=== PATIENT | female | born 2000 | race Caucasian/White ===

== ENCOUNTER 2020-09-19 21:41 | Emergency (ER) | payer OTHER, SELFPAY ==
[2020-09-19 21:45] VITALS: BP 138/62; PULSE 106; RESP 20; TEMP 36.8; O2SAT 98; BMI 42.0
--- NOTE | 2020-09-19 22:23 | PC.NURSE ---
patient a&ox3, calm/compliant, answering questions appropriately, patient ambulated with security and tech to bathroom to do changeover, will continue to monitor.
--- NOTE | 2020-09-20 00:07 | ED_ITS ---
HPI - Psych General Chief Complaint: Psychiatric Symptoms Stated Complaint: SI Time Seen by Provider: 09/20/20 00:34 Source: patient Mode of arrival: ambulatory Limitations: no limitations History of Present Illness HPI Narrative: Patient presents to ED for suicidal thoughts. Patient states she has no plan but constant suicidal ideation and wants to be evaluated and received help. Related Data Allergies Allergy/AdvReac Type Severity Reaction Status Date / Time No Known Allergies Allergy Verified 09/19/20 21:45 Review of Systems Review of Systems: Yes all other systems are reviewed and are negative Constitutional: Constitutional: Reports as per HPI and Reports no additional constitutional complaints Eyes: Eyes: Reports as per HPI and Reports no additional eye complaints ENT: Reports system reviewed and no additional complaints, except as documented and Reports as per HPI Cardiovascular: Cardiovascular: Reports as per HPI and Reports no additional cardiovascular complaints Respiratory: Respiratory: Reports as per HPI and Reports no additional respiratory complaints Gastrointestinal: Gastrointestinal: Reports as per HPI and Reports no additional gastrointestinal complaints Musculoskeletal: Musculoskeletal: Reports no additional musculoskeletal complaints and Reports as per HPI Neurologic: Reports system reviewed and no additional complaints, except as documented and Reports as per HPI Psychiatric: Psychiatric: Reports no additional psychiatric complaints and Reports as per HPI [facility] Social History Social History Alcohol intake: current Smoking Status: Current every day smoker Use of substances other than those prescribed or required for medical reasons: Yes Substance Use Type: Marijuana Substance Use Frequency: Daily Advance Directives: No Advance Directives Information Provided: No Physical Exam Vital Signs: Vital Signs: Last Vital Signs Temp 98.3 F 09/19/20 21:45 Pulse 106 H 09/19/20 21:45 Resp 20 09/19/20 21:45 BP 138/62 09/19/20 21:45 Pulse Ox 98 09/19/20 21:45 Body Mass Index 42.0 Const: General: cooperative, healthy appearing, comfortable, no acute distress, well developed, alert and awake Orientation/consciousness: patient oriented x3 HENMT: Head: Yes normal to inspection, Yes No palpable skull fracture present, Yes normocephalic, Yes atraumatic and No abrasion Eyes: General: appearance normal, both eyes and all related structures Neck: Neck: Yes normal visual inspection, Yes full ROM, Yes no lymphadenopathy, Yes no meningeal signs, Yes trachea midline, Yes supple and No tender Chest: Chest palpation & inspection: normal inspection of the chest and normal palpation of entire chest wall Breast/axilla inspection: normal inspection of the breasts Resp: Effort & Inspection: normal respiratory effort and able to speak in complete sentences Auscultation: clear to auscultation bilaterally Cardio: Jugular venous distension: no JVD Heart sounds: S1 normal heart sound present and S2 normal heart sound present GI: Inspection: Yes normal to inspection and No abdominal wall ecchymosis Palpation (GI): Soft to palpation, not firm, nontender, no guarding and not rigid : General: No CVA tenderness and Yes no CVA tenderness Back/Spine/Pelvis: Back: no CVA tenderness, No CVA tenderness and No back tenderness Skin: General skin exam: no rashes or lesions noted and elasticity normal Neuro: General: patient oriented x3, no meningeal signs and CN's II-XI intact bilaterally Cranial nerves: Yes CN's II-XII intact bilaterally Extrem: General: Yes normal to inspection and Yes full ROM Psych: Appearance: grossly normal, well kempt and not disheveled Thought content: Suicidality present Course Course Course Narrative: Patient will give urine tox and the patient will be evaluated by a [facility]. Reevaluation(s) Reevaluation #1: Awaiting labs and [facility] evaluattion. Discharge Plan Discharge Clinical Impression: Depression
[2020-09-20 06:11] LABS: MANUAL DIFF FLAG NO
[2020-09-20 06:15] LABS: Basophils Percent Auto 0.4 % (0-2); Eosinophils Absolute Auto 0.4 X10*3/uL (0.0-0.4); Eosinophils Percent Auto 3.9 % (0-4); Hematocrit 39.2 % (37-47); Imm Gran Abs Auto 0.03 X10*3/uL (0.00-0.03); Imm Gran Pct Auto 0.3 % (0.0-0.4); Lymphocytes Absolute Auto 2.5 X10*3/uL (1.2-4.9); Lymphocytes Percent Auto 28.1 % (20-40); Mean Corpuscular HGB Conc 33.2 g/dl (31.0-35.0); Mean Corpuscular Volume 96.6 fL (80-98); Mean Platelet Volume 8.7 fL (9.4-12.3); Monocytes Absolute Auto 0.7 X10*3/uL (0.1-1.2); Monocytes Percent Auto 7.5 % (2-11); Neutrophils Absolute Auto 5.4 X10*3/uL (2.0-8.3); Neutrophils Percent Auto 59.8 % (45-73); Platelet Count 265 X10*3/uL (160-400); Red Blood Count 4.06 X10*6/uL (4.20-5.50); Red Cell Distribution Width 11.9 % (11.0-16.0)
[2020-09-20 06:45] LABS: Ethanol < 10 mg/dL
[2020-09-20 06:47] LABS: Alanine Aminotransferase 17 U/L (0-31); Albumin Level 4.2 g/dL (3.5-5.0); Alkaline Phosphatase 67 U/L (39-117); Anion Gap 13 (12-20); Aspartate Amino Transferase 17 U/L (5-31); Bilirubin Direct 0.3 mg/dL (0.0-0.5); Bilirubin Total 0.6 mg/dL (0.0-1.0); Blood Urea Nitrogen 12 mg/dL (9-16); Carbon Dioxide 25 mmol/L (22-29); Chloride 104 mmol/L (96-108); Creatinine Clr Calc Pharmacy 129.9; Estimated Glomerular Filt Rate > 60; Glucose Random 109 mg/dL (60-115); Potassium 3.4 mmol/L (3.3-5.1); Sodium 139 mmol/L (135-145); Total Protein 7.2 g/dL (6.5-8.0)
[2020-09-20 10:11] LABS: HCG Quantitative < 2 mIU/mL
--- NOTE | 2020-09-20 14:45 | MHC.RECOVRN ---
20 year old female presented to [facility] ED on 09/19 due to SI without plan per choir leader. Patient was evaluated by [facility] and inpatient psychiatric level of care was not recommended. Respite was recommended, however, they declined due to pts alcohol use. A referral was made to PHP and pt will follow up outpatient with psychiatric providers.? ? T/w met with pt in ED 6H to discuss alcohol use. Pt reports 6 beers plus 3 shots daily x 1 year. Pt states I don't wake up and immediately need a drink. But as the day goes on I realize how depressed I am and then I drink. Pt denies experiencing withdrawal symptoms. Pt has not received treatment for AUD. Pt reports my mom was a refinery operator vapor recovery unit so I kind of know how this works. Pts mom is not currently in recovery.? When asked about goals related to alcohol use, pt states I maybe want to cut down a little but not stop completely. ?Harm reduction, medications for AUD, and available recovery supports were discussed with pt. Pt declines services at this time but is interested in pursuing naltrexone after psychiatric services have been initiated. Pt was provided with resources as well as t/w card if pt would like to discuss further.?
== END 2020-09-20 16:14 | disposition home or self-care (01) ==
PROVIDERS: Physician Assistant; Physician Assistant Medical; Emergency Provider Emergency Medicine Emergency Medical Services
DX: F33.1 Major depressive disorder, recurrent, moderate (principal); R45.851 Suicidal ideations; F12.90 Cannabis use, unspecified, uncomplicated; F17.200 Nicotine dependence, unspecified, uncomplicated; Z71.6 Tobacco abuse counseling; Z79.899 Other long term (current) drug therapy
CPT/HCPCS: 36415; 80053; 80076; 80320; 82248; 84702; 85025; 99284; 99285